=== PATIENT | female | born 1965 | race Hispanic/Latino ===

== ENCOUNTER 2017-11-29 12:02 | Emergency (ER) | payer OTHER ==
[2017-11-29 12:11] VITALS: BMI 42.5
[2017-11-29] MEDS ORDERED: Albuterol-Ipratrop 3 mg / 0.5 (3 ml) UD INH STA (12:26)
--- NOTE | 2017-11-29 12:27 | ED PDOC ---
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 Pt reports she used her albuterol pump x 3 without relief. EMS was called. 1 prior hospitalization for asthma. No intubations. Unknown asthma triggers, but believes hot weather contributed. (-) edema, (-) orthopnea, (-) syncope, (-) fever. PMD: Jada Moore Past Medical History Reviewed: Historical Data, Nursing Documentation, Vital Signs Vital Signs: Last Vital Signs Temp 98.7 F 11/29/17 12:11 Pulse 117 H 11/29/17 12:11 Resp 18 11/29/17 12:11 BP 141/84 11/29/17 12:11 Pulse Ox 100 11/29/17 15:22 - Medical History PMH: Asthma, Diabetes, HTN Other PMH: Thyroid disease - Surgical History Other surgeries: Right Knee Replacement - Family History Family History: States: Unknown Family Hx - Social History Current smoker - smoking cessation education provided: No - Home Medications Home Medications: Ambulatory Orders Medication Instructions Recorded Albuterol 0.083% [Albuterol 0.083% 2.5 mg IH Q4 PRN #20 neb 11/29/17 Inhal Cristina (2.5 mg/3 ml) UD] Albuterol HFA [Ventolin HFA 90 1 - 2 puff IH Q4 PRN #1 inhaler 11/29/17 mcg/actuation (8 g)] Prednisone 50 mg PO DAILY #4 tab 11/29/17 - Allergies Allergies/Adverse Reactions: Allergies Allergy/AdvReac Type Severity Reaction Status Date / Time aspirin Allergy RASH Verified 11/29/17 12:18 Penicillins Allergy RASH Verified 11/29/17 12:18 Review of Systems ROS Statement: Except As Marked, All Systems Reviewed And Found Negative ENT: Positive for: Other ((-) edema, (-) orthopnea, (-) syncope, (-) fever.) Physical Exam - Reviewed Nursing Documentation Reviewed: Yes Vital Signs Reviewed: Yes - Physical Exam Appears: Positive for: Well Head Exam: Positive for: ATRAUMATIC, NORMAL INSPECTION, NORMOCEPHALIC Skin: Positive for: Normal Color, Warm, Dry Eye Exam: Positive for: Normal appearance ENT: Positive for: Normal ENT Inspection Neck: Positive for: Normal Cardiovascular/Chest: Positive for: Regular Rate, Rhythm Respiratory: Positive for: Wheezing (Mild wheezing at lung bases with good air entry). Negative for: Respiratory Distress Gastrointestinal/Abdominal: Positive for: Normal Exam, Soft. Negative for: Tenderness Back: Positive for: Normal Inspection Extremity: Positive for: Normal ROM. Negative for: Deformity Neurologic/Psych: Positive for: Alert, Oriented (x 3) - Laboratory Results Result Diagrams: 11/29/17 12:57 11/29/17 12:57 - ECG O2 Sat by Pulse Oximetry: 100 (RA) Pulse Ox Interpretation: Normal Medical Decision Making Medical Decision Making: Time: 12:26 Plan: - BNP - CMP - Troponin I - CBC (with differential) - CXR - Duoneb 3 mg/0.5 mg (3 ml) UD - SOLU-Medrol 125 mg IVP - Peak Flow Pre/Post Treatment Time:13:22 Chest X-Ray IMPRESSION: No Acute consolidation Potassium Level reveals 3.1 MMOL/L [low] K-Felipe 20 mEq ER Tab ordered. Time: 15:14 As per RN, pt feels much better and wants to go home. Upon provider evaluation patient is medically stable, and requires no further treatment in the ED at this time. Patient will be discharged with Rx for Albuterol, Ventolin HFA and Prednisone. Counseling was provided and all questions were answered regarding diagnosis and need for follow up with PCP in 2 -3 days. There is agreement to discharge plan. Return if symptoms persist or worsen. Scribe Attestation: Documented by Mukund Starks, acting as a scribe for Chavez Davidson III, DO Provider Scribe Attestation: All medical record entries made by the Scribe were at my direction and personally dictated by me. I have reviewed the chart and agree that the record accurately reflects my personal performance of the history, physical exam, medical decision making, and the department course for this patient. I have also personally directed, reviewed, and agree with the discharge instructions and disposition. Disposition - Clinical Impression Clinical Impression: Asthma exacerbation - Patient ED Disposition Is Patient to be Admitted: No - Disposition Referrals: Daren Baum MD [Staff Provider] - Disposition: Routine/Home Disposition Time: 15:20 Condition: STABLE Additional Instructions: See your doctor in 2-3 days for followup. Return to ER for any new or worsening symptoms. Stay in air conditioning when it's hot and humid outside. Take medications as directed. NICOLAS BROWN, thank you for letting us take care of you today. Your provider was Chavez Davidson III, DO and you were treated for SHORTNESS OF BREATH. The emergency medical care you received today was directed at your acute symptoms. If you were prescribed any medication, please fill it and take as directed. It may take several days for your symptoms to resolve. Return to the Emergency Department if your symptoms worsen, do not improve, or if you have any other problems. Please contact your doctor or call one of the physicians/clinics you have been referred to that are listed on the Patient Visit Information form that is included in your discharge packet. Bring any paperwork you were given at discharge with you along with any medications you are taking to your follow up visit. Our treatment cannot replace ongoing medical care by a primary care provider outside of the emergency department. Thank you for allowing the [facility] team to be part of your care today. If you had an X-Ray or CT scan: A Radiologist will review the ED reading if any change in treatment is needed we will contact you. If you had a blood, urine, or wound culture: It will take several days for the results, if any change in treatment is needed we will contact you. Prescriptions: Albuterol 0.083% [Albuterol 0.083% Inhal Cristina (2.5 mg/3 ml) UD] 2.5 mg IH Q4 PRN #20 neb PRN Reason: Wheezing Albuterol HFA [Ventolin HFA 90 mcg/actuation (8 g)] 1 - 2 puff IH Q4 PRN #1 inhaler PRN Reason: Shortness Of Breath Prednisone 50 mg PO DAILY #4 tab Instructions: Asthma in Adults Forms: [facility] (Burmese)
[2017-11-29] MEDS ORDERED: Albuterol-Ipratrop 3 mg / 0.5 (3 ml) UD ONE (12:39)
[2017-11-29 13:00] LABS: BASO # 0.1 K/uL (0.0-0.2); BASO % 1.3 % (0.0-2.0); EOS # 0.1 K/uL (0.0-0.7); EOS % 1.3 % (0.0-4.0); HEMOGLOBIN 14.1 g/dL (12.0-16.0); LYMPH # 3.7 K/uL (1.0-4.3); MEAN CELL VOLUME 90.6 fl (81.0-99.0); MEAN CORPUSCULAR HEMOGLOBIN 30.4 pg (27.0-31.0); MEAN CORPUSCULAR HGB CONC 33.6 g/dL (33.0-37.0); MEAN PLATELET VOLUME 8.3 fl (7.2-11.7); MONO # 0.8 K/uL (0.0-0.8); MONO % 8.3 % (0.0-10.0); NEUT # 5.2 K/uL (1.8-7.0); NEUT % 52.1 % (50.0-75.0); NRBC % 0.1 % (0.0-0.0); RBC 4.63 Mil/uL (3.80-5.20); RED CELL DISTRIBUTION WIDTH 13.4 % (11.5-14.5)
[2017-11-29 13:09] LABS: ALB/GLOB RATIO 1.4 (1.0-2.1); ALBUMIN 4.6 g/dL (3.5-5.0); ALT/SGPT 58 U/L (9-52); AST/SGOT 53 U/L (14-36); BLOOD UREA NITROGEN 19 mg/dl (7-17); CALCIUM 9.1 mg/dL (8.4-10.2); GFR AFRICAN-AMERICAN > 60; GFR NON-AFRICAN AMERICAN 59
[2017-11-29 13:21] LABS: B-TYPE NATRIURETIC PEPTIDE 44.2 pg/ml (0-900)
--- NOTE | 2017-11-29 13:23 | RAD ---
HISTORY: chest pain/ r/o infiltrate COMPARISON: No prior. TECHNIQUE: Chest PA and lateral FINDINGS: LUNGS: Mild elevation right hemidiaphragm due to eventration or scalloping. PLEURA: No significant pleural effusion identified. No pneumothorax apparent. CARDIOVASCULAR: Normal. OSSEOUS STRUCTURES: Minor chronic anterior stature loss several mid to lower thoracic segments VISUALIZED UPPER ABDOMEN: Normal. OTHER FINDINGS: None. IMPRESSION: No acute consolidation.
[2017-11-29] MEDS ORDERED: Potassium Chloride 20 mEq ER Tab PO ONE (14:02)
[2017-11-29 15:39] VITALS: BP 128/78; PULSE 78; RESP 19; TEMP 97; O2SAT 98
== END 2017-11-29 15:40 | disposition home or self-care (01) ==
LOC: H.ER 12:02
DX: J45.901 Unspecified asthma with (acute) exacerbation (principal); E07.9 Disorder of thyroid, unspecified; E11.9 Type 2 diabetes mellitus without complications; I10 Essential (primary) hypertension; Z88.0 Allergy status to penicillin; Z96.651 Presence of right artificial knee joint
CPT/HCPCS: 71046; 80053; 83880; 84484; 85025; 94640; 96374; 99283; J2930